=== PATIENT | male | born 1965 | race African-American/Black ===

== ENCOUNTER → 2016-11-18 | Day surgery (SDC) | payer MEDICARE, OTHER ==
[~2016-11-18] MED LIST: CARB100O PO; CARB200T PO; CARB400T PO; CIPR500T94 PO; HYDROmorphone 2 MG/ML VIAL IV PRN; IV RINGERS,LACTATED 1000ML 1,000 ML IV SCH; LIDOCAINE 1% 1 ML SYRINGE. ID PRN; LIDOCAINE 2% PF Vial for OR 5 ML VIAL. ONE; MORPHINE SULFATE 2 MG/ML DISP.SYRIN. IV PRN; MULT1TAB13 PO; ONDANSETRON PF 4 MG/2 ML VIAL. IV PRN; PROCHLORPERAZINE 10 MG/2 ML VIAL. IV PRN; PROPOFOL 40 ML IV ONE; TAMS0.4C97 PO; fentaNYL PF VIAL 100 MCG/2 ML VIAL IV PRN
--- NOTE | 2016-11-18 08:51 | PDOC1 ---
HISTORY & PHYSICAL H&P Demetrio Akhtar [id number] 1965 10/22/2016 01:20 PM 06/29 [facility], [facility] OUR PATIENTS COME FIRST [address] [place] [address] Ph. [phone] Patient: Demetrio Akhtar Date of : 1965 Date: 10/22/2016 1:20 PM Visit Type: Office Visit This 51 year old male presents for Screening colonoscopy and Weight loss. History of Present Illness: 1. Screening colonoscopy No prior screening. Denies risk factors. Associated symptoms include weight loss. Pertinent negatives include abdominal pain, change in bowel habits, change in stool caliber, constipation, decreased appetite, diarrhea, melena, nausea, rectal bleeding, vomiting and weight gain. Additional information: No family history of colon cancer, No family history of Crohn's/colitis and No NSAID/ASA use. 2. Weight loss The patient has lost 20lbs (9.09kgs) over a period of 1 year(s). Pertinent negatives include constipation, decreased appetite, diarrhea and vomiting. Additional information: Has been eating well but still has not been able to gain weight. Has lost 20 lbs of wt. INTAKE COMMENTS: Intake Comments: Nurse Note: the pt is here today for a screening colonoscopy, the pt has had no prior screening. 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 PAST MEDICAL/SURGICAL HISTORY (Detailed) Disease/disorder Onset Date Management Date Comments Benign prostatic hypertrophy Epilepsy Hyperlipidemia Medications (Active): Started Medication Directions Instruction Stopped 10/09/2016 Azo Bladder Control 300 mg capsule take 1 softgel by mouth daily 09/09/2016 Calcium 600 + D(3) 600 mg calcium-200 unit capsule take 1 capsule by mouth daily 09/09/2016 clotrimazole 1 % topical cream apply by topical route 2 times every day to the affected and surrounding areas of skin in the morning and evening 09/09/2016 Flomax 0.4 mg capsule TAKE 2 CAPSULES ONCE A DAY. 09/09/2016 multivitamin tablet take 1 tablet by oral route every day with food 10/09/2016 Myrbetriq 50 mg tablet,extended release take 1 tablet by oral route every day swallowing whole with water. Do not crush, chew and/or divide. 09/09/2016 Tegretol XR 400 mg tablet,extended release TAKE [1] TABLET EVERY 12 HOURS Allergies: Ingredient Reaction Medication Name Comment NO KNOWN ALLERGIES REVIEW OF SYSTEMS System Neg/Pos Details Constitutional Negative Chills, fever, malaise, weight gain and weight loss. ENMT Negative Sore throat. Eyes Negative Double vision. Respiratory Negative Dyspnea and wheezing. Cardio Negative Chest pain and irregular heartbeat/palpitations. GI Positive See HPI. GI Negative Abdominal pain, change in bowel habits, change in stool caliber, constipation, decreased appetite, diarrhea, melena, nausea, see HPI, rectal bleeding and vomiting. Negative Dysuria and hematuria. Endocrine Negative Cold intolerance and heat intolerance. Psych Negative Anxiety. Integumentary Negative Hives and rash. MS Negative Joint pain. Guille/Lymph Negative Easy bleeding and easy bruising. Allergic/Immuno Negative Animals at home and food allergies. VITAL SIGNS Time BP mm/Hg Pulse /min Resp /min Temp F Ht ft Ht in Ht cm Wt lb Wt kg BMI kg/ m2 BSA m2 O2 Sat% 1:46 PM 128/74 73 97.9 5.0 9.00 175.26 153.00 69.400 22.59 98 Time Measured by 1:46 PM Catalina Pillai PHYSICAL EXAM: Exam Findings Details Constitutional Normal Well developed. Eyes Normal Conjunctiva - Right: Normal, Left: Normal. Sclera - Right: Normal, Left: Normal. Nasopharynx Normal Lips/teeth/gums - Normal. Neck Exam Normal Inspection - Normal. Thyroid gland - Normal. Respiratory Normal Inspection - Normal. Auscultation - Normal. Cardiovascular Normal Regular rate and rhythm. No murmurs, gallops, or rubs. Vascular Normal Pulses - Carotids: Normal, Femoral: Normal, Dorsalis pedis: Normal. Abdomen Normal Inspection - Normal. Anterior palpation - No guarding. No abdominal tenderness. No hepatic enlargement. No splenic enlargement. No hernia. No ascites. Skin Normal Inspection - Normal. Extremity Normal No edema. Psychiatric * Oriented to time, place, person and situation. Psychiatric Normal Appropriate mood and effect. The patient was checked out at 1:46 PM by Catalina Pillai. Assessment/Plan # Detail Type Description 1. Assessment Weight loss (R63.4). Patient Plan schedule colonoscopy and EGD at [facility] Plan Orders Further diagnostic evaluations ordered today include(s) Colonoscopy and EGD to be performed today. He is to schedule a follow-up visit with Lai Lehman MD upon completion of work-up 2. Assessment Encounter for screening colonoscopy (Z12.11). Electronically signed by: Lai Lehman MD 10/22/2016 05:22 PM Document generated by: Lai Lehman 10/22/2016 05:22 PM Douglas Rodrigues MD, Family Practice; Braulio Talbot MD Internal Medicine; Irasema Newton MD, Internal Medicine; Laura Lehman MD Internal Medicine; Lai Lehman MD, Gastroenterology; Cezar Ricci MD, Rheumatology, S. Dano Myrick, Physical Medicine/Rehab JEscobar Scott APRN ------ 11/18/16 Patient seen and examined. No change in H&P. LAI LEHMAN MD November 18, 2016 08:51
--- NOTE | 2016-11-18 10:11 | PDOC4 ---
GI OP Report - Dr. Maldonado Date/Time DATE: 11/18/16 TIME: 10:10 Attending Physician Emanuel Maldonado MD Referring Physician Indications Weight loss Pre-Op See the Anesthesia note for documentation of the administered medications Procedures Upper GI endoscopy+ Polypectomy Findings - Normal esophagus. - A single gastric polyp. Resected and retrieved. - Normal examined duodenum. Plan - Discharge patient to home. - Patient has a contact number available for emergencies. The signs and symptoms of potential delayed complications were discussed with the patient. Return to normal activities tomorrow. Written discharge instructions were provided to the patient. - Resume regular diet. - Continue present medications. - Await pathology results. - Return to my office in 2 weeks. EMANUEL MALDONADO MD November 18, 2016 10:11
--- NOTE | 2016-11-18 10:16 | PDOC4 ---
GI OP Report - Dr. Maldonado Date/Time DATE: 11/18/16 TIME: 10:12 Attending Physician Emanuel Maldonado MD Referring Physician Indications Weight loss Pre-Op See the Anesthesia note for documentation of the administered medications Procedures Colonoscopy Findings - The entire examined colon is normal on direct and retroflexion views. - No specimens collected. Plan - Discharge patient to home. - Patient has a contact number available for emergencies. The signs and symptoms of potential delayed complications were discussed with the patient. Return to normal activities tomorrow. Written discharge instructions were provided to the patient. - Resume regular diet. - Continue present medications. - Repeat colonoscopy in 10 years for surveillance. - Return to my office as needed. EMANUEL MALDONADO MD November 18, 2016 10:16
[2016-11-18 10:25] VITALS: BP 125/64
== END | disposition home or self-care (01) ==
LOC: ENDOS 08:37
PROVIDERS: ATTEND Internal Medicine Gastroenterology
DX: K31.7 Polyp of stomach and duodenum (principal); Z86.69 Personal history of other diseases of the nervous system and sense organs
CPT/HCPCS: 43251; 45378; J2704